=== PATIENT | female | born 1985 | race Asian ===

== ENCOUNTER 2016-11-15 00:55 | Inpatient (IN) | payer OTHER ==
[2016-11-15] MEDS ORDERED: ELECTROLYTE-148 SOLN 1,000 ML IV SCH (01:15)
[2016-11-15] MEDS ORDERED: WITCH HAZEL 50% (TUCKS) 40 PAD/JAR PAD TP PRN (02:10)
[2016-11-15] MEDS ORDERED: BISACODYL 10 MG SUPP.RECT RC PRN (02:10)
[2016-11-15] MEDS ORDERED: METHYLERGONOVINE MALEATE 0.2 MG/1 ML AMP IM PRN (02:10)
[2016-11-15] MEDS ORDERED: BENZOCAINE 28 GM HEMORRHOIDAL OINTMENT TP PRN (02:10)
[2016-11-15] MEDS ORDERED: BENZOCAINE 20% 57 GM BOTTLE TP PRN (02:10)
[2016-11-15] MEDS: D5W-LR W/ 20 UNITS OXYTOCIN 1,000 ML IV SCH ×2 (02:13→03:15)
[2016-11-15] MEDS: ACETAMINOPHEN 325 MG TABLET (FP) PO PRN ×3 (02:30→21:57)
[2016-11-15] MEDS: IBUPROFEN 600 MG TABLET (FP) PO PRN ×3 (02:30→21:57)
--- NOTE | 2016-11-15 02:30 | HP ---
Past Medical History - Primary Care Physician PCP:: ODESSA - Admission Chief Complaint: 31 yo P 1102 @ 39.4 wks with Contractions since 10 pm 11/14/16 , no LOF, no VB, +FM History of Present Illness: PNI: 1. h/o PTL @ 32wks, followed with cervical length 2. Hypothyrodism on Synthroid 88mcg daily, TFT sent 3.Quad screen and anatomy with Echogenic cardiac focus - increased risk of DS - [place] wnl History Source: Patient Limitations to Obtaining History: Clinical Condition - Past Medical History ...: 3 ...Para: 2 ...Term: 1 ...: 1 ...Spon : 0 ...Induced : 0 ... Weeks Gestation by Dates: 39.5 ...EDC by Dates: 11/17/16 Endocrine: Yes: Hypothyroidism Additional Medical History: Hemorhoids. labor @ 32wks - Past Surgical History Hx Myomectomy: No Hx Transabdominal Cerclage: No - Smoking History Smoking history: Never smoked Have you smoked in the past 12 months: No - Alcohol/Substance Use Hx Alcohol Use: No Home Medications - Allergies Allergies/Adverse Reactions: Allergies Allergy/AdvReac Type Severity Reaction Status Date / Time No Known Allergies Allergy Verified 11/06/16 12:14 - Home Medications Home Medications: Ambulatory Orders Levothyroxine [Synthroid -] 50 mcg PO DAILY 11/04/16 Vit No.130/Iron/FA [ Vitamins] 1 each PO DAILY 11/04/16 Family Disease History - Family Disease History Family History: Unable to Obtain Review of Systems - Review of Systems Constitutional: reports: No Symptoms Pain Intensity: 7 Physical Exam - Maternity Constitutional: Yes: Well Nourished Eyes: Yes: WNL HENT: Yes: WNL Neck: Yes: WNL Lungs: Clear to auscultation Breast(s): Yes: WNL - Abdominal Exam/OB Fundal Height: 39 Number of Fetuses: Single Presentation: Vertex Contractions: Yes Regularity: Regular Intensity: Mild/Mod Monitor Mode: External Heart Rate (range): 140 Heart Rate Location: Midline - Vaginal Exam/OB Vaginal Bleediing: No Speculum Exam: No Dilatation (cm): 6 Effacement (%): 90 Amniotic Membrane Status: Bulging Station: 0 - Physical Exam Edema: No Psychiatric: Yes: Alert Assessment/Plan 31 yo P2 @ 39.5 wks in active labor PNC unremarkable, PNL wnl, GBS neg Admit to L&D IVF, NPO, Labs + TFTs Patient started asking for Epidural and ROM with light meconium Repeat VE Lip to Fully dialated within 10-15min of initial exam Patient was set up to push, see delivery note
[2016-11-15 02:33] LABS: ARTERIAL BLD GAS O2 SATURATION 75.7 % (90-98.9); ARTERIAL BLOOD GAS BASE EXCESS -2.7 meq/l (-2-2); ARTERIAL BLOOD GAS HCO3 22.1 meq/L (22-26); ARTERIAL BLOOD GAS pH 7.36 (7.35-7.45)
[2016-11-15 02:36] LABS: ART PUNCT SITE OTHER
[2016-11-15 02:39] LABS: ARTERIAL BLOOD GAS PO2 38.3 mmHg (80-100)
--- NOTE | 2016-11-15 02:39 | PN ---
Delivery - Delivery Vaginal Delivery: Spontaneous Type of Anesthesia: None Episiotomy/Laceration: None EBL (cc): 500 Delivery, Single - Stages of Labor Date 1st Stage Initiatied: 11/15/16 Date of Delivery: 11/15/16 Time of Delivery: 02:09 Date Placenta Delivered: 11/15/16 Time Placenta Delivered: : Placenta: Yes: Spontaneous, Normal Configuration - Condition of Manager Strategy/Excellence Leader Present: No Infant Gender: Female Position: Right, OA - 1 Minute Total Score: 9 5 Minutes Total Score: 9 - Feeding Plan Initial Plan: Exclusive throughout hospitalization Benefits of Exclusively reinforced: Yes Remarks - Remarks Remarks: 31 yo P3 now had uncomplicated vaginal delivery, shoulders delivered without difficulty. Light meconium stain noted, baby suctioned on pereneum, delayed cord clamp. Pereneum intact, EBL 500cc Methergine 0.2mg IM given in addition to Pitocin, Bladder drained 100cc urine Mother and baby stable in the LDR
[2016-11-15 02:40] LABS: VENOUS PH 7.36 (7.31-7.41)
[2016-11-15 02:42] LABS: VENOUS BLOOD GAS HCO3 22.1 meq/L (22-29)
[2016-11-15 02:42] LABS: BASOPHIL 0.1 % (0-2.0); EOSINOPHIL 0.7 % (0-4.5); MCH 24.8 pg (25.7-33.7); MCHC 31.3 g/dl (32.0-36.0); MEAN CELL VOLUME 79.3 fl (80-96); MEAN PLT VOLUME 8.8 fl (7.5-11.1); NEUTROPHILS 72.9 % (42.8-82.8); PLATELET COUNT 222 K/MM3 (134-434); RDW 15.6 % (11.6-15.6)
[2016-11-15 02:55] LABS: INR 0.91 (0.82-1.09)
[2016-11-15 02:58] LABS: ACTIVATED PTT 27.1 SECONDS (26.9-34.4)
[2016-11-15 03:05] LABS: CALCIUM 9.3 mg/dL (8.5-10.1); CREATININE 0.5 mg/dL (0.55-1.02)
[2016-11-15 03:24] VITALS: BMI 25.7
[2016-11-15 03:56] LABS: HIV 1 & 2 AB NEGATIVE; HIV 1 AGp24 NEGATIVE
[2016-11-15] MEDS: LEVOTHYROXINE NA 88 MCG TABLET (FP) PO SCH (08:19)
[2016-11-15 19:31] LABS: THYROID STIMULATING HORMONE 4.4 uIU/ml (0.358-3.74)
[2016-11-16] MEDS ORDERED: SENNOSIDES/DOCUSATE COMBO (SENNA PLUS) TABLET (UD) PO PRN (02:10)
[2016-11-16] MEDS: LEVOTHYROXINE NA 88 MCG TABLET (FP) PO SCH (06:27)
[2016-11-16] MEDS: IBUPROFEN 600 MG TABLET (FP) PO PRN ×2 (06:59→16:28)
[2016-11-16] MEDS: ACETAMINOPHEN 325 MG TABLET (FP) PO PRN (06:59)
--- NOTE | 2016-11-16 08:24 | PN ---
Progress Note (short form) - Note Progress Note: ppd 1 doping well, voids ok, no excess vaginal bleeding, has cramps low abdomen CBC, BMP 11/15/16 02:20 11/15/16 02:20 Last Vital Signs Temp Pulse Resp BP Pulse Ox 97.6 F 78 20 98/50 100 11/16/16 07:55 11/16/16 07:55 11/16/16 07:55 11/16/16 07:55 11/15/16 07:16 uterus firm, non tender,no cva lochia mild perinum clean no calf tenderness plan ambulate, cbc, pain management
[2016-11-16 10:47] LABS: PT. ON O2? NO
[2016-11-17] MEDS: LEVOTHYROXINE NA 88 MCG TABLET (FP) PO SCH (06:47)
[2016-11-17] MEDS: ACETAMINOPHEN 325 MG TABLET (FP) PO PRN (06:48)
[2016-11-17] MEDS: IBUPROFEN 600 MG TABLET (FP) PO PRN (06:48)
[2016-11-17 07:47] LABS: BASOPHIL 0.3 % (0-2.0); EOSINOPHIL 1.7 % (0-4.5); MCH 26.4 pg (25.7-33.7); MEAN CELL VOLUME 80.1 fl (80-96); MEAN PLT VOLUME 8.2 fl (7.5-11.1); NEUTROPHILS 74.4 % (42.8-82.8); PLATELET COUNT 188 K/MM3 (134-434); RDW 15.6 % (11.6-15.6); WHITE BLOOD COUNT 9.1 K/mm3 (4.0-10.0)
--- NOTE | 2016-11-17 08:10 | DS ---
Physical Exam-RESERVATION AGENT Vital Signs: Vital Signs Temperature 98.7 F 11/16/16 22:00 Pulse Rate 82 11/16/16 22:00 Respiratory Rate 18 11/16/16 22:00 Blood Pressure 113/58 11/16/16 22:00 O2 Sat by Pulse Oximetry (%) 100 11/15/16 07:16 Constitutional: Yes: Well Nourished, No Distress, Calm Eyes: Yes: WNL, Conjunctiva Clear, EOM Intact HENT: Yes: WNL, Atraumatic, Normocephalic Neck: Yes: WNL, Supple, Trachea Midline Cardiovascular: Yes: WNL, Regular Rate and Rhythm Respiratory: Yes: WNL, Regular, CTA Bilaterally Gastrointestinal: Yes: WNL ...Rectal Exam: Yes: WNL Renal/: Yes: WNL ....Post : Yes: Uterus firm, Uterus non-tender, Slight lochia rubra Breast(s): Yes: WNL Musculoskeletal: Yes: WNL Extremities: Yes: WNL Edema: Yes Edema: LLE: Trace, RLE: Trace Integumentary: Yes: WNL Neurological: Yes: WNL, Alert, Oriented ...Motor Strength: WNL Psychiatric: Yes: WNL, Alert, Oriented Labs: CBC, BMP 11/15/16 02:20 Delivery - Delivery Vaginal Delivery: Spontaneous Type of Anesthesia: None Episiotomy/Laceration: None EBL (cc): 500 Delivery, Single - Stages of Labor Date 1st Stage Initiatied: 11/14/16 Time 1st Stage Initiated: 22:30 Date 2nd Stage Initiated: 11/15/16 Time 2nd Stage Initiated: 01:40 Date of Delivery: 11/15/16 Time of Delivery: 02:09 Time Placenta Delivered: 02:17 Placenta: Yes: Spontaneous, Normal Configuration - Condition of Infant Data Center Manager/Block Trimmer Present: No Gender: Female Weight: 8 lb 4 oz Position: Right, OA Total Hours ROM (Hrs/Mins): 0hrs/57mins - 1 Minute Total Score: 9 5 Minutes Total Score: 9 - Feeding Plan Initial Plan: Elected not to breastfeed exclusively throughout hospitalization Benefits of Exclusively reinforced: Yes Discharge Summary Reason For Visit: LABOR Procedures: Principal: Condition: Good - Instructions Diet, Activity, Other Instructions: regular diet, follow up office 4 weeks Referrals: Manrpeet Castano MD [Staff Physician] - Disposition: HOME - Home Medications Comprehensive Discharge Medication List: Ambulatory Orders Levothyroxine [Synthroid -] 50 mcg PO DAILY 11/04/16 Vit No.130/Iron/FA [ Vitamins] 1 each PO DAILY 11/04/16 Ibuprofen [Motrin -] 600 mg PO TID #21 tablet 11/16/16
[2016-11-17 10:54] VITALS: BP 106/61; PULSE 74; TEMP 97.6
== END 2016-11-17 11:30 | disposition home or self-care (01) | DRG 775 ==
LOC: JLDR 00:55 → J3W 07:31
PROVIDERS: ADMIT Obstetrics & Gynecology; ATTEND Obstetrics & Gynecology
PROC: 10E0XZZ Delivery of Products of Conception, External Approach (ICD-10-PCS; principal; 2016-11-15)
DX: O99.284 Endocrine, nutritional and metabolic diseases complicating childbirth (principal); E03.9 Hypothyroidism, unspecified; Z3A.39 39 weeks gestation of pregnancy; Z37.0 Single live birth
CPT/HCPCS: 36415; 36600; 59409; 71020-TC; 80048; 82803; 84439; 84443; 85025; 85610; 85730; 86593; 86850; 86900; 86901; 87389

== ENCOUNTER 2018-07-19 12:12 | Emergency (ER) | payer OTHER ==
--- NOTE | 2018-07-19 12:16 | PDOC ---
History of Present Illness - General Chief Complaint: Syncope/Near Syncope Stated Complaint: NEAR SYNCOPE Time Seen by Provider: 07/19/18 12:15 - History of Present Illness Initial Comments: 07/19/18 12:23 Ms. Whipple is a 32 yo female w/ pmh of Hypothyroidism and known retained POC from miscarriage in May (D&C planned for 07/24) who presents for evaluation of dizziness / presyncopal episode today while getting labs drawn. Patient reports person drawing labs had a lot of difficulty drawing blood and she became nauseated. Rapid response was called and patient's BP was noted to be in 80's systolic. Patient denies any complaints at this time and reports that she is feeling better. The patient denies chest pain, shortness of breath, and headache. Denies fever, chills, nausea, vomit, diarrhea and constipation. Denies dysuria, frequency, urgency and hematuria. Allergies: NKDA Past History - Past Medical History Allergies/Adverse Reactions: Allergies Allergy/AdvReac Type Severity Reaction Status Date / Time No Known Allergies Allergy Verified 11/06/16 12:14 Home Medications: Ambulatory Orders Levothyroxine [Synthroid -] 100 mcg PO DAILY 11/04/16 Asthma: No Cancer: No Cardiac Disorders: No Diabetes: No HTN: No Seizures: No Thyroid Disease: Yes (Hypothyroidism - takes Levothyroxine) - Suicide/Smoking/Psychosocial Hx Smoking History: Never smoked Have you smoked in the past 12 months: No Hx Alcohol Use: No Drug/Substance Use Hx: No Hx Substance Use Treatment: No Review of Systems - Review of Systems Comments:: 07/19/18 12:30 GENERAL/CONSTITUTIONAL: No fever or chills. No weakness. HEAD, EYES, EARS, NOSE AND THROAT: No change in vision. No ear pain or discharge. No sore throat. CARDIOVASCULAR: No chest pain or shortness of breath RESPIRATORY: No cough, wheezing, or hemoptysis. GASTROINTESTINAL: No nausea, vomiting, diarrhea or constipation. GENITOURINARY: No dysuria, frequency, or change in urination. MUSCULOSKELETAL: No joint or muscle swelling or pain. No neck or back pain. SKIN: No rash NEUROLOGIC: +Presyncpal episode as described (now resolved). No headache, vertigo, loss of consciousness, or change in strength/sensation. ENDOCRINE: No increased thirst. No abnormal weight change HEMATOLOGIC/LYMPHATIC: No anemia, easy bleeding, or history of blood clots. ALLERGIC/IMMUNOLOGIC: No hives or skin allergy. *Physical Exam - Physical Exam Comments: 07/19/18 12:31 GENERAL: Awake, alert, and fully oriented, in no acute distress HEAD: No signs of trauma, normocephalic, atraumatic EYES: PERRLA, EOMI, sclera anicteric, conjunctiva clear ENT: Auricles normal inspection, hearing grossly normal, nares patent, oropharynx clear without exudates. Moist mucosa NECK: Normal ROM, supple, no lymphadenopathy, JVD, or masses LUNGS: No distress, speaks full sentences, clear to auscultation bilaterally HEART: Regular rate and rhythm, normal S1 and S2, no murmurs, rubs or gallops, peripheral pulses normal and equal bilaterally. ABDOMEN: Soft, nontender, normoactive bowel sounds. No guarding, no rebound. No masses EXTREMITIES: Normal inspection, Normal range of motion, no edema. No clubbing or cyanosis. NEUROLOGICAL: Cranial nerves II through XII grossly intact. Normal speech, normal gait, no focal sensorimotor deficits SKIN: Warm, Dry, normal turgor, no rashes or lesions noted. Medical Decision Making - Medical Decision Making 07/19/18 12:39 Ms. Whipple is a 32 yo female w/ pmh as described who presents for evaluation after episode c/w vaso-vagal response. Patient reportedly improved at presentation. BGM 95. EKG regular rate, regular rhythm, normal access, normal interval, no ST elevations or depression. Normal EKG. 07/19/18 13:01 Patient's repeat blood pressure 110/72. No further symptoms. Patient alert and oriented. No concern for acute process at this time. Discharging to home. *DC/Admit/Observation/Transfer Diagnosis at time of Disposition: Vaso vagal episode - Discharge Dispostion Disposition: HOME - Referrals - Patient Instructions Printed Discharge Instructions: DI for Syncope in Adults (Fainting) Additional Instructions: You were evaluated today in the ER after your presyncopal episode. No concerning findings were found at this time. Please follow-up with SPORTS DOCTOR for procedure next week as discussed. Return to ER if any further dizziness, fever, chills, sweating, or other concerning symptoms. - Post Discharge Activity
[2018-07-19 12:28] VITALS: TEMP 98.1; BMI 20.5
--- NOTE | 2018-07-19 12:40 | PDOC ---
Attending Attestation - Resident Resident Name: Juan Alonzo - ED Attending Attestation I have performed the following: I have examined & evaluated the patient, The case was reviewed & discussed with the resident, I agree w/resident's findings & plan, Exceptions are as noted - HPI HPI: 07/19/18 12:40 32 year old with PMH of thyroid disorder brought in to ED as rapid response for vasovagal syncope. The patient was undergoing routine blood work for a scheduled D&C later this week. While at the outpatient laboratory, pt was getting a needle placed, and pt felt lightheaded. Never had chest pain or SOB. [place] lightheaded and had a brief syncopal episode. Returned to baseline. No pain and feels well. - Physicial Exam PE: 07/19/18 12:46 GENERAL: Awake, alert, and fully oriented, in no acute distress HEAD: No signs of trauma EYES: EOMI, sclera anicteric, conjunctiva clear ENT: Auricles normal inspection, hearing grossly normal, nares patent Moist mucosa NECK: Normal ROM, supple LUNGS: Breath sounds equal, clear to auscultation bilaterally. No wheezes, and no crackles HEART: Regular rate and rhythm, normal S1 and S2, no murmurs, rubs or gallops ABDOMEN: Soft, nontender, No guarding, no rebound. No masses EXTREMITIES: Normal range of motion, no edema. No clubbing or cyanosis. No cords, erythema, or tenderness NEUROLOGICAL: Cranial nerves II through XII grossly intact. Normal speech SKIN: Warm, Dry, normal turgor, no rashes or lesions noted. - Medical Decision Making 07/19/18 12:47 Vital Signs Temp Pulse Resp BP Pulse Ox 98.1 F 62 18 100/63 100 07/19/18 12:14 07/19/18 12:14 07/19/18 12:14 07/19/18 12:14 07/19/18 12:14 Likely vasovagal syncope. ECG reassuring. Encourage PO hydration. Follow up with PMD. Heart Score/ECG Review #1 ECG reviewed & interpreted by me at: 12:35 07/19/18 12:39 NSR 65, no std/jasmin, TWI III, normal axis, normal intervals, QTC 420 msec, no brugada, no HOCM, no WPW
[2018-07-19 13:04] VITALS: BP 110/70; PULSE 66
--- NOTE | 2018-07-20 21:35 | EKG ---
Test Reason : Blood Pressure : / mmHG Vent. Rate : 065 BPM Atrial Rate : 065 BPM P-R Int : 126 ms QRS Dur : 084 ms QT Int : 404 ms P-R-T Axes : 050 042 011 degrees QTc Int : 420 ms NORMAL SINUS RHYTHM WITH SINUS ARRHYTHMIA NORMAL ECG NO PREVIOUS ECGS AVAILABLE Confirmed by AKOSUA NICOLE MD ([id number]) on 07/20/2018 9:35:34 PM Referred By: Confirmed By:AKOSUA NICOLE MD
== END 2018-07-19 13:08 | disposition home or self-care (01) ==
LOC: JER 12:12
DX: R55 Syncope and collapse (principal); E03.9 Hypothyroidism, unspecified
CPT/HCPCS: 82962; 84703; 93005; 93010; 99283-25

== ENCOUNTER 2018-07-24 04:48 | Day surgery (SDC) | payer OTHER ==
[2018-07-23 09:48] VITALS: BMI 20.5
[2018-07-24] MEDS ORDERED: LIDOCAINE HCL/PF 2% SDV 5ML VIAL ONE (13:21)
[2018-07-24] MEDS ORDERED: DEXAMETHASONE SOD PHOSPHATE 4 MG/1 ML VIAL ONE (13:21)
[2018-07-24] MEDS ORDERED: MIDAZOLAM HCL 2 MG/2 ML SINGLE DOSE VIAL ONE (13:23)
[2018-07-24] MEDS ORDERED: PROPOFOL 20 ML ONE ×2 (13:25→15:51)
--- NOTE | 2018-07-24 15:27 | HP ---
History & Physical Update - Physical Physical: No Change - Assessment Assessment: No Change - Plan Plan: No Change
[2018-07-24] MEDS ORDERED: ONDANSETRON 4 MG/2 ML VIAL IVPUSH PRN (15:29)
[2018-07-24] MEDS ORDERED: IBUPROFEN 600 MG TABLET (FP) PO PRN (15:29)
[2018-07-24] MEDS ORDERED: oxyCODONE HCL 5 MG TABLET PO PRN (15:29)
[2018-07-24] MEDS ORDERED: IBUPROFEN 800 MG/8 ML IJ IVPB PRN (15:29)
[2018-07-24] MEDS ORDERED: ELECTROLYTE-148 SOLN 1,000 ML IV SCH (15:30)
[2018-07-24] MEDS ORDERED: LACTATED RINGERS SOLUTION 1,000 ML IV SCH (15:45)
[2018-07-24] MEDS ORDERED: ceFAZolin SODIUM 1 GM VIAL IVPB ONE (15:45)
[2018-07-24 17:20] VITALS: TEMP 98
[2018-07-24 18:28] VITALS: BP 106/65; PULSE 66
--- NOTE | 2018-07-25 10:37 | OP ---
DATE OF OPERATION: 07/24/2018 PREOPERATIVE DIAGNOSES: Rule out endometrial polyp, menorrhagia. POSTOPERATIVE DIAGNOSES: Endometrial polyps, menorrhagia. PROCEDURE: Hysteroscopy, dilatation and curettage, and polypectomy. SURGEON: Manpreet Castano MD ANESTHESIA: General. ESTIMATED BLOOD LOSS: 20 mL. OPERATIVE PROCEDURE: The patient was taken to the operating room had adequate general anesthesia. Examination under anesthesia revealed external genitalia to be normal. Vagina was normal. Cervix clean, no gross lesion. Uterus was normal size, anteverted. Adnexa, no masses were palpable. Then, with the weighted speculum in the vagina, anterior lip of cervix was grasped with a single-toothed tenaculum. Uterine cavity was sounded to 8 cm. Then cervix was slightly dilated, and then hysteroscope was introduced. Visualization of endocervical canal appeared to be normal. Endometrium was prominent, irregular, and had a 2-cm polyp at the fundal area of the uterus. No other abnormality was noted. Both cornual regions were identified. Then, hysteroscope was withdrawn, and polyp was removed. Then, endometrium was curetted. The patient tolerated the procedure well, left the OR in good condition. MANPREET CASTANO M.D. [id number]
--- NOTE | 2018-07-28 17:25 | PATH ---
Surgical Pathology Report Patient Name: BLANCA MAGDALENO [facility]. Rec. #: [id number] /Age/Gender: 1985 (Age: 32) / F Account: [id number] Location: [facility] SURGICAL Taken: 07/24/2018 Received: 07/25/2018 Reported: 07/28/2018 Physicians: Manpreet Castano M.D. Specimen(s) Received ENDOMETRIAL CURETTINGS AND POLYP Clinical History Endometrial polyp Final Diagnosis ENDOMETRIAL CURETTINGS AND POLYP, EXCISION: FRAGMENTS OF ENDOMETRIAL POLYP. SEPARATE PROLIFERATIVE ENDOMETRIUM. SEPARATE DEGENERATED CHORIONIC VILLI AND DECIDUAL TISSUE WITH ACUTE DECIDUITIS. ENDOCERVICAL TISSUE WITH SQUAMOUS METAPLASIA. Electronically Signed Carmela Ervin M.D. Gross Description Received in formalin labeled "endometrial curettings and polyp," is a 3.5 x 3.0 x 0.5 cm aggregate of wellington-brown soft tissue fragments admixed with blood clot. The formalin is filtered and the specimen is entirely submitted in 2 cassette. /07/25/2018 saudi07/25/2018
== END 2018-07-24 18:30 | disposition home or self-care (01) ==
LOC: JASU-SURG 04:48 → MERGE 15:00 → JASU-SURG 18:30
PROVIDERS: ATTEND Obstetrics & Gynecology
PROC: 0UJD8ZZ Inspection of Uterus and Cervix, Via Natural or Artificial Opening Endoscopic (ICD-10-PCS; 2018-07-24)
PROC: 0UB97ZX Excision of Uterus, Via Natural or Artificial Opening, Diagnostic (ICD-10-PCS; principal; 2018-07-24 14:30)
PROC: 0UDB7ZX Extraction of Endometrium, Via Natural or Artificial Opening, Diagnostic (ICD-10-PCS; 2018-07-24 14:30)
DX: N92.0 Excessive and frequent menstruation with regular cycle (principal); N84.0 Polyp of corpus uteri
CPT/HCPCS: 84703; 88305-TC; 94760